=== PATIENT | male | born 1945 | race Caucasian/White ===

== ENCOUNTER 2018-02-08 05:38 | Inpatient (IN) | payer OTHER, BC ==
[~2018-02-08] VITALS: Ht 188 cm; Wt 115.7 kg
[2018-02-08] VITALS (9 sets, daily range): BP systolic 150–175; BP diastolic 75–99
--- NOTE | ~2018-02-08 | O ---
[facility] [place] [address] OPERATIVE REPORT Name: JERADKEVEN B Room #: 150-2 [facility].#: [id number] Admission: 02/08/18 Attend Phys: Carter Mckay MD Discharge: Date of : 47 Report #: [id number] THIS REPORT FOR: //name// CC: Chidi Mckay DATE OF SERVICE: 02/08/2018 PREOPERATIVE DIAGNOSIS: Left anterior tibial tendon tear. POSTOPERATIVE DIAGNOSIS: Left anterior tibial tendon tear. PROCEDURE: Left anterior tibial tendon repair. SURGEON: Carter Mckay M.D. COPY CENTER SPECIALIST: Erin Bourgeois. ANESTHESIA: General. ESTIMATED BLOOD LOSS: Minimal. DRAINS: No drains. TOURNIQUET TIME: 45 minutes. DESCRIPTION OF PROCEDURE: The patient was brought to the operating room where he was placed under general anesthesia. Once under adequate general anesthesia, his left lower extremity was prepped and draped in sterile manner. The extremity was elevated, exsanguinated, tourniquet placed to 300 mmHg. An anterior incision was then made along the anterior tibial tendon course. This dissected down to the extensor retinaculum, which was incised exposing the tendon. This was then followed distally to an area of abundant scar tissue. This was approximately 3 cm worth of scar which was then debrided from the tendon itself. The insertion on the medial cuneiform was exposed, and this as well was debrided of any scar tissue. Once complete, a G2 Mitek suture anchor was then placed into the medial cuneiform, and subsequently the proximal stump of the anterior tibial tendon was then repaired to the bone utilizing the FiberWire suture with the anchor. Once this was suture repaired there, it was also repaired to the distal stump of the tendon with the FiberWire suture from the suture anchor. Excellent repair was achieved in this manner. The wound was irrigated copiously, and the retinacular tissue was repaired with 0 Ethibond suture. The wound was irrigated once again copiously and closed with 2-0 Vicryl in subcutaneous tissues and luke were used for the skin. The wounds were dressed with Xeroform, 4 x 4s, and sterile soft compressive dressing with a short leg cast with the ankle in dorsiflexion was placed. Tourniquet was let [address] [address] OPERATIVE REPORT Name: KEVEN MARS Room #: 150-2 [facility] M..#: [id number] Admission: 02/08/18 Attend Phys: Carter Mckay MD Discharge: Date of : 47 Report #: [id number] down at 45 minutes. Toes were pink and warm with good capillary refill. There were no complications from the procedure. The patient tolerated the procedure well and went to the recovery room without incident. By: 1433 1523 Carter Mckay MD /nt
--- NOTE | ~2018-02-08 | HC ---
[facility] [place] [address] CONSULTATION Name: MARSKEVEN Room #: 455-P [facility] IN .R.#: [id number] Admission: 02/09/18 Attend Phys: Carter Mckay MD Discharge: Date of : 47 Report #: [id number] THIS REPORT FOR: //name// CC: Chidi Mckay DATE OF SERVICE: 02/08/2018 REASON FOR CONSULTATION: Consult has been requested by Dr. Mckay for management of hypertension and diabetes. HISTORY OF PRESENT ILLNESS: The patient is a 72-year-old male with history of hypertension, diabetes, dyslipidemia, chronic kidney disease stage 4-5, was admitted today for an elective left anterior tibial tendon repair. The patient is seen postoperatively in the room. Pain is fairly well controlled. The patient denies any chest pain, no dizziness, no shortness of breath, no nausea or vomiting. The patient is followed by Dr. Perez for his chronic kidney disease and apparently his GFR is close to 17 and he is on a transplant list. PAST MEDICAL AND SURGICAL HISTORY: Significant for diabetes, hypertension, hyperlipidemia, left detached retina surgery, deviated septum surgery, stage 4 kidney disease, on transplant followed by Dr. Perez, right knee scope surgery, skin cancer excision x 2, left cataract surgery, sleep apnea and wears CPAP, history of gout. He had an abnormal stress test and then a normal cardiac catheterization by Dr. Olea at [facility]. ALLERGIES: No known drug allergy. HOME MEDICATIONS: Reviewed, please look at the nursing documentation of home medication. SOCIAL HISTORY: No smoking, alcohol abuse, or illicit drug abuse. FAMILY HISTORY: Significant for hypertension. REVIEW OF SYSTEMS: CONSTITUTIONAL: No recent weight loss or weight gain. No fever or chills. EYES: No change in vision. THROAT: Denies any sore throat. CARDIOVASCULAR: No chest pain, dizziness or palpitation. RESPIRATORY: No cough or expectoration. GASTROINTESTINAL: No nausea or vomiting. GENITOURINARY: No dysuria or hematuria. NEUROLOGIC: No focal numbness or weakness of the extremities. PSYCHIATRIC: No anxiety or depression. [facility] [address] [place] [address] CONSULTATION Name: KEVEN MARS Room #: 455-P [facility] IN .R.#: [id number] Admission: 02/09/18 Attend Phys: Carter Mkcay MD Discharge: Date of : 47 Report #: [id number] The 12-point review of system is negative other than the positive and negative dictated in the history of present illness and the review of system. PHYSICAL EXAMINATION: VITAL SIGNS: Blood pressure 161/86, heart rate of 58 per minute, afebrile. GENERAL: The patient is awake and alert, not in acute respiratory distress. EYES: Pupils equal, reactive to light, nonicteric, conjunctivae. NECK: Supple, no JVD, no bruit, no lymphadenopathy. CARDIOVASCULAR SYSTEM: S1, S2, negative S3, no murmur. CHEST: Bilateral air entry present. Clear on auscultation. ABDOMEN: Soft, bowel sounds present, no mass, no organomegaly, no tenderness. PERIPHERY: No pedal edema. No calf tenderness. Dorsalis pedis 1+ on the right side, did not test on the left side. He has a cast on the left leg. NEUROLOGICAL: Power is 5/5 in the upper extremity, did not test on the lower extremity. LABORATORY DATA: Reviewed. His potassium was 5 on early this morning. BUN and creatinine of 53 and 4.0. AST and ALT are within normal limits. ASSESSMENT AND PLAN: 1. Hypertension. The patient will be continued on his present home medication, Diovan and Coreg. We will continue to monitor. 2. Diabetes. The patient will be continued on his home medication. We will be placed him on sliding scale insulin and Accu-Cheks. 3. Chronic kidney disease stage 4. Creatinine is 4.0. We will repeat his labs in the morning and monitor his renal function. We will avoid nonsteroidal anti-inflammatory agent. 4. Gout. The patient will be continued on allopurinol. 5. Status post tibial tendon repair. Postoperative course as per Orthopedic Surgery. 6. Deep venous thrombosis prophylaxis as per orthopedic surgery. 7. Treatment plan has been explained to the patient and the patient's family at bedside in detail. <ELECTRONICALLY SIGNED> By: Ino Castañeda MD 02/09/18 1320 1835 [id number] Ino Castañeda MD /nt
[~2018-02-08 05:38] MED LIST: ALLOPURINOL 10100 M1 PO; ASPIRIN81 M2 PO; COREG6.25 MG PO; DIOVAN320 MG PO; LEVEMIR FL100 UNIT/2 SUBQ; LIPITOR 20 MG T20 M1 PO; MAGOX 400400 MG PO; NOVOLOG FL100 UNIT/M SUBQ; NOVOLOG100 UNIT/1 SUBQ; OMEGA 3 1,0001 EACH PO; VITAMIN B-12500 MCG PO; VITAMIN D-32000 UNI1 PO
[2018-02-08 12:11] LABS: CALCIUM 9.3 mg/dL (8.5-10.1)
[2018-02-08 12:16] LABS: ALBUMIN 3.5 g/dL (3.4-5.0); TOTAL BILIRUBIN 0.7 mg/dL (<0.1-1.0); TOTAL PROTEIN 6.7 g/dL (6.4-8.2)
[2018-02-09 03:37] VITALS: BP 146/80
[2018-02-09 05:44] LABS: ABSOLUTE NEUTROPHILS 6.7 thou/uL (1.4-8.2); BASOPHILS 0.9 % (0.0-2.0); EOSINOPHILS 3.2 % (0.0-3.0); HEMATOCRIT 34.9 % (42.0-52.0); HEMOGLOBIN 11.6 gm/dL (14.0-18.0); LYMPHOCYTES 14.1 % (24.0-44.0); MCH 30.9 pg (26.0-34.0); MCHC 33.3 g/dL (28.0-37.0); MCV 92.7 fL (80.0-100.0); MONOCYTES 8.6 % (1.0-8.0); PLATELET COUNT 208 thou/uL (150-400); POLYS 73.2 % (36.0-66.0); RBC 3.76 mil/uL (4.50-6.00); RDW 14.4 % (10.5-14.5); WBC 9.2 thou/uL (4.0-11.0)
[2018-02-09 05:55] LABS: CALCIUM 8.9 mg/dL (8.5-10.1); CREATININE 3.9 mg/dL (0.7-1.3); MAGNESIUM 1.6 mg/dL (1.8-2.4); POTASSIUM 4.9 mmol/L (3.5-5.1)
[2018-02-09 08:41] VITALS: BP 145/65
[2018-02-09] MEDS ORDERED: TRI-BUFFERED A325 M1 PO (12:23)
[2018-02-09 15:31] VITALS: BP 129/78
[2018-02-09 20:04] VITALS: BP 138/73
[2018-02-10 03:54] VITALS: BP 170/79
[2018-02-10 05:17] LABS: ABSOLUTE NEUTROPHILS 5.2 thou/uL (1.4-8.2); BASOPHILS 0.8 % (0.0-2.0); EOSINOPHILS 3.3 % (0.0-3.0); HEMATOCRIT 33.1 % (42.0-52.0); HEMOGLOBIN 10.9 gm/dL (14.0-18.0); LYMPHOCYTES 20.7 % (24.0-44.0); MCH 30.8 pg (26.0-34.0); MCHC 33.1 g/dL (28.0-37.0); MONOCYTES 11.4 % (1.0-8.0); PLATELET COUNT 185 thou/uL (150-400); POLYS 63.8 % (36.0-66.0); RBC 3.56 mil/uL (4.50-6.00); RDW 14.6 % (10.5-14.5); WBC 8.2 thou/uL (4.0-11.0)
[2018-02-10 05:39] LABS: CALCIUM 9.4 mg/dL (8.5-10.1); CREATININE 3.8 mg/dL (0.7-1.3); POTASSIUM 4.4 mmol/L (3.5-5.1)
[2018-02-10 08:30] VITALS: BP 148/68
[2018-02-10 12:46] VITALS: BP 148/68
== END 2018-02-10 14:40 | disposition home or self-care (01) | DRG 501 ==
LOC: OR 05:38 → TBA 05:38 → OR 12:01 → 4W 16:16 → OR 02-09 09:00 → 4W 02-09 12:00 → ENTRNSPT 02-10 14:05 → EDTRNSPTSTS 02-10 14:06 → 4W 02-10 14:40
PROVIDERS: Internal Medicine; Orthopaedic Surgery Foot and Ankle Surgery
PROC: 0LMP0ZZ Reattachment of Left Lower Leg Tendon, Open Approach (ICD-10-PCS; principal; 2018-02-08)
DX: S86.212A Strain of muscle(s) and tendon(s) of anterior muscle group at lower leg level, left leg, initial encounter (principal); N18.4 Chronic kidney disease, stage 4 (severe); I12.9 Hypertensive chronic kidney disease with stage 1 through stage 4 chronic kidney disease, or unspecified chronic kidney disease; M10.9 Gout, unspecified; E11.22 Type 2 diabetes mellitus with diabetic chronic kidney disease; E78.5 Hyperlipidemia, unspecified; Z98.42 Cataract extraction status, left eye; Z82.49 Family history of ischemic heart disease and other diseases of the circulatory system; Z79.899 Other long term (current) drug therapy; Z79.82 Long term (current) use of aspirin; X58.XXXA Exposure to other specified factors, initial encounter; Y93.89 Activity, other specified; Y92.89 Other specified places as the place of occurrence of the external cause; Y99.8 Other external cause status
CPT/HCPCS: 10047; 50010; 50101; 50386; 51412; 56525; 56526; 56530; 56789; 57091; 62110; 62900; 70005

== ENCOUNTER → 2018-08-30 | Outpatient (CLI) | payer OTHER, BC ==
[~2018-08-30] MED LIST changes: +TRI-BUFFERED A325 M1 PO
== END ==
LOC: MRI 13:52
DX: S96.812A Strain of other specified muscles and tendons at ankle and foot level, left foot, initial encounter (principal); M19.072 Primary osteoarthritis, left ankle and foot; M25.772 Osteophyte, left ankle; M25.472 Effusion, left ankle; M77.32 Calcaneal spur, left foot; X58.XXXA Exposure to other specified factors, initial encounter; Y93.89 Activity, other specified; Y92.89 Other specified places as the place of occurrence of the external cause; Y99.8 Other external cause status

== ENCOUNTER 2018-10-14 05:34 | Day surgery (SDC) | payer OTHER, BC ==
[~2018-10-14] VITALS: Ht 188 cm; Wt 117.9 kg
--- NOTE | ~2018-10-14 | O ---
[facility] [place] [address] OPERATIVE REPORT Name: MARSKEVEN B Room #: 150-7 [facility]..#: [id number] Admission: 10/14/18 Attend Phys: Carter Mckay MD Discharge: Date of : 47 Report #: [id number] THIS REPORT FOR: //name// CC: FAM unknown Carter Mckay DATE OF SERVICE: 10/14/2018 PREOPERATIVE DIAGNOSIS: Left ankle anterior tibial tendon tear. POSTOPERATIVE DIAGNOSIS: Left ankle anterior tibial tendon tear. PROCEDURE: Left ankle anterior tibial tendon reconstruction. SURGEON: Carter Mckay M.D. PHARMACY CASHIER: Erin Bourgeois. ANESTHESIA: General. ESTIMATED BLOOD LOSS: Minimal. DRAINS: No drains. TOURNIQUET TIME: One hour. DESCRIPTION OF PROCEDURE: The patient was brought to the operating room where he was placed under general anesthesia. Once under adequate general anesthesia, his left lower extremity was prepped and draped in sterile manner. The extremity was elevated, exsanguinated, tourniquet placed 300 mmHg. The patient's previous incision was then utilized and extended proximally approximately 3 cm. Dissection was carried down to the anterior tibial tendon sheath and the extensor retinaculum, which was then incised exposing the anterior tibial tendon. It had its tear at the level of the ankle joint. The tendon was widened and enlarged. It was therefore lengthened with a Z-plasty type cut with a [place] blade. This was fixed with #2 FiberWire suture. This then did allow enough length to repair the tendon back down to the medial cuneiform. A drill for the Bio-Tenodesis screw was then utilized and placed into the medial cuneiform. The tendon was then passed through the bone and fixed into place with the 5.5 mm Bio-Tenodesis screw. Excellent fixation was achieved in this manner. The tendon repair was oversewn with #2 FiberWire suture. The wound was irrigated copiously and closed with #2 FiberWire suture in the deep fascia and extensor retinaculum, 2-0 Vicryl was used in subcutaneous tissues and luke used for the skin. The wounds were dressed with Xeroform, 4 x 4s, and sterile soft compressive dressing with a short leg cast with the foot in dorsiflexion was placed. Tourniquet was let down at approximately [address] [address] OPERATIVE REPORT Name: KEVEN MARS Room #: 150-7 [facility]..#: [id number] Admission: 10/14/18 Attend Phys: Carter Mckya MD Discharge: Date of : 47 Report #: [id number] Toes were pink and warm with good capillary refill. There were no complications from procedure. The patient tolerated the procedure well and went to the recovery room without incident. By: 1453 1523 Carter Mckay MD /elaine
[~2018-10-14 05:34] MED LIST changes: +ASPIR 8181 MG PO; +AVAPRO300 MG PO; +COREG25 MG PO; +DEMADEX20 MG PO; +FENOFIBRATE48 MG PO; +LEVEMIR SUBQ; +MAGNESIUM OXID200 MG PO; -VITAMIN D-32000 UNI1 PO; +VITAMIN D-32000 UNIT PO
[2018-10-14 11:52] LABS: CALCIUM 9.8 mg/dL (8.5-10.1); CREATININE 5.4 mg/dL (0.7-1.3); POTASSIUM 5.3 mmol/L (3.5-5.1)
[2018-10-14 11:58] LABS: ALBUMIN 3.4 g/dL (3.4-5.0); TOTAL BILIRUBIN 0.3 mg/dL (<0.1-1.0); TOTAL PROTEIN 7.3 g/dL (6.4-8.2)
[2018-10-14 12:39] VITALS: BP 153/66
--- NOTE | 2018-10-14 13:43 | EKG ---
[address] [address] ELECTROCARDIOGRAM REPORT Name: MARSKEVEN Room #: 150-7 [facility].#: [id number] Admission: 10/14/18 Attend Phys: Carter Mckay MD Discharge: Date of : 47 Report #: [id number] THIS REPORT FOR: //name// [facility] Test Date: 2018-10-14 Test Time: 11:56:40 Pat Name: KEVEN MARS Department: Room: 150 7 Gender: M Small Engine Mechanic: MONI : 1945 Requested By: Carter Mckay Order Number: [id number] MD: Jack Klein Measurements Intervals G[place]inner Rate: 66 P: 67 LA: 247 QRS: 54 QRSD: 105 T: 79 QT: 403 QTc: 423 Interpretive Statements Sinus rhythm Prolonged LA interval Probable left atrial enlargement No previous ECG available for comparison Electronically Signed On 10-14-2018 13:43:21 PHYSICIAN RELATIONS SPECIALIST by Jack Klein [email or web address] <ELECTRONICALLY SIGNED> By: Jack Klein MD 10/14/18 1343 D: [id number] Jack Klein MD /HOANG
[2018-10-14] MEDS ORDERED: PERCOCET 7.5-31 EACH PO (14:47)
[2018-10-14] MEDS ORDERED: ASA5UEC PO (14:48)
[2018-10-14 15:37] VITALS: BP 153/66
== END 2018-10-14 16:08 | disposition home or self-care (01) ==
LOC: TBA 05:34 → OR 05:34
PROVIDERS: Orthopaedic Surgery Foot and Ankle Surgery
DX: S96.812A Strain of other specified muscles and tendons at ankle and foot level, left foot, initial encounter (principal); I12.9 Hypertensive chronic kidney disease with stage 1 through stage 4 chronic kidney disease, or unspecified chronic kidney disease; E11.22 Type 2 diabetes mellitus with diabetic chronic kidney disease; N18.4 Chronic kidney disease, stage 4 (severe); E78.5 Hyperlipidemia, unspecified; G47.33 Obstructive sleep apnea (adult) (pediatric); M10.9 Gout, unspecified; Z85.828 Personal history of other malignant neoplasm of skin; Z98.42 Cataract extraction status, left eye; Z98.890 Other specified postprocedural states; Z79.899 Other long term (current) drug therapy; Z79.82 Long term (current) use of aspirin; X58.XXXA Exposure to other specified factors, initial encounter; Y93.89 Activity, other specified; Y92.89 Other specified places as the place of occurrence of the external cause; Y99.8 Other external cause status
CPT/HCPCS: 50010; 50101; 55430; 62110; 62900; 70005